=== PATIENT | female | born 1955 | race Two or more races ===

== ENCOUNTER 2018-03-03 20:36 | Emergency (ER) | payer OTHER ==
[~2018-03-03] VITALS: Ht 157.5 cm; Wt 81.6 kg
[2018-03-03] MEDS ORDERED: ETOMIDATE (2MG/ML) 20ML VIAL IV ONE (23:45)
[2018-03-04 01:30] VITALS: BP 147/84
== END 2018-03-04 03:17 | disposition home or self-care (01) ==
LOC: ER 20:36
DX: S52.531A Colles' fracture of right radius, initial encounter for closed fracture (principal); E11.9 Type 2 diabetes mellitus without complications; I10 Essential (primary) hypertension; W01.0XXA Fall on same level from slipping, tripping and stumbling without subsequent striking against object, initial encounter; Y93.89 Activity, other specified; Y99.8 Other external cause status; Y92.098 Other place in other non-institutional residence as the place of occurrence of the external cause
CPT/HCPCS: 25605; 70450; 72131; 73030; 73100; 73110; 82962; 99285; J7030